=== PATIENT | female | born 1955 | race Caucasian/White ===

== ENCOUNTER 2019-09-16 10:40 | Day surgery (SDC) | payer MEDICARE, BC ==
[2019-09-16] VITALS (8 sets, daily range): BP systolic 91–161; BP diastolic 46–94
[~2019-09-16] VITALS: Ht 170.2 cm; Wt 133.8 kg
[2019-09-16 11:34] LABS: BASOPHILS # (AUTO) 0.1 X10'3 (0-0.2); BASOPHILS % (AUTO) 1.1 % (0-1); EOSINOPHILS # (AUTO) 0.2 X10'3 (0-0.9); EOSINOPHILS % (AUTO) 2.1 % (0-6); HEMATOCRIT 40.5 % (35.0-45.0); HEMOGLOBIN 13.5 g/dl (12.0-16.0); LYMPHOCYTES # (AUTO) 2.1 X10'3 (1.1-4.8); LYMPHOCYTES % (AUTO) 23.8 % (21-51); MEAN CORPUSCULAR HEMOGLOBIN 31.2 PG (27.0-31.0); MEAN CORPUSCULAR HGB CONC 33.3 g/dL (33.0-36.5); MEAN CORPUSCULAR VOLUME 93.5 FL (78-98); MEAN PLATELET VOLUME 9.4 FL (7.4-10.4); MONOCYTES # (AUTO) 0.8 X10'3 (0-0.9); MONOCYTES % (AUTO) 9.2 % (2-12); NEUTROPHILS # (AUTO) 5.7 X10'3 (1.8-7.7); NEUTROPHILS % (AUTO) 63.8 % (42-75); PLATELET COUNT 218 X10'3 (140-440); RED BLOOD COUNT 4.33 X10'6 (4.20-5.60); RED CELL DISTRIBUTION WIDTH 14.2 % (11.5-14.5); WHITE BLOOD COUNT 8.9 X10'3 (4.5-11.0)
[2019-09-16 11:41] LABS: ALBUMIN 3.3 G/DL (3.4-5.0); ANION GAP 8 (8-16); BLOOD UREA NITROGEN 27 MG/DL (7-18); BUN/CREATININE RATIO 24.8 (6.6-38.0); CALCIUM 8.7 MG/DL (8.5-10.1); CHLORIDE 103 MMOL/L (99-107); CREATININE 1.09 MG/DL (0.40-0.90); GLUCOSE 109 MG/DL (70-104); MAGNESIUM 2.2 MG/DL (1.5-2.4); SODIUM 138 MMOL/L (135-145); eGFR 51 ML/MIN
[2019-09-16] MEDS ORDERED: MONT10TA21 PO (11:58)
[2019-09-16] MEDS ORDERED: GABA300C PO (11:58)
[2019-09-16] MEDS ORDERED: FAMO40TA58 PO (11:58)
[2019-09-16] MEDS ORDERED: BUME1TAB34 PO ×2 (11:58)
[2019-09-16] MEDS ORDERED: ROSU40TA PO (11:58)
[2019-09-16] MEDS ORDERED: SYN0.112T PO (11:58)
[2019-09-16] MEDS ORDERED: ASPI-10 PO (11:58)
[2019-09-16] MEDS ORDERED: METF-900 PO (11:58)
[2019-09-16] MEDS ORDERED: FLUT1BLS3 INH (11:58)
[2019-09-16] MEDS ORDERED: LISI10TA4 PO (11:58)
[2019-09-16] MEDS ORDERED: LIRA0.6P2 SUBCUT (11:58)
[2019-09-16] MEDS ORDERED: MAGN400T28 PO (11:58)
[2019-09-16] MEDS ORDERED: CETI-90 PO (11:58)
[2019-09-16] MEDS ORDERED: CLOP75TA15 PO (11:58)
[2019-09-16] MEDS ORDERED: INSU100I29 SQ (11:58)
[2019-09-16] MEDS ORDERED: POTA10TA19 PO (11:58)
[2019-09-16] MEDS ORDERED: MULT-1085 PO (11:58)
[2019-09-16] MEDS ORDERED: midazolam 2 mg/2 ml injection ONE ×7 (12:32→15:17)
[2019-09-16] MEDS ORDERED: ceFAZolin 1000mg inj ONE (12:32)
[2019-09-16] MEDS ORDERED: proCHLORperazine 10 MG/2 ml inj ONE (12:32)
[2019-09-16] MEDS ORDERED: LIDOcaine 1% W/epiNEPHrine 1:100,000 20ml vial ONE (12:32)
[2019-09-16] MEDS ORDERED: fentaNYL/PF 50MCG/1 ML 2ML syringe ONE ×3 (12:32→15:14)
[2019-09-16] MEDS ORDERED: vancomycin 1,000mg inj ONE (12:32)
[2019-09-16] MEDS ORDERED: hydrocortisone sod succ/PF 100mg/2ml inj. ONE (13:01)
[2019-09-16] MEDS ORDERED: diphenhydrAMINE 50 mg/ml inj ONE (13:01)
[2019-09-16] MEDS ORDERED: iohexol 350MG/ML 100ml bottle IV ONE ×2 (13:28→13:52)
[2019-09-16] MEDS ORDERED: furosemide 20 MG/2 ML vial IV ONE (16:00)
[2019-09-16] MEDS ORDERED: normal saline 1000ml 1,000 ML IV SCH (16:00)
== END 2019-09-16 18:06 | disposition home or self-care (01) ==
LOC: SSTAY O 10:40
PROVIDERS: ATTEND Internal Medicine Cardiovascular Disease
DX: I25.5 Ischemic cardiomyopathy (principal); I25.10 Atherosclerotic heart disease of native coronary artery without angina pectoris; E28.2 Polycystic ovarian syndrome; E78.00 Pure hypercholesterolemia, unspecified; I25.2 Old myocardial infarction; E10.9 Type 1 diabetes mellitus without complications; E03.9 Hypothyroidism, unspecified; Z86.19 Personal history of other infectious and parasitic diseases; L40.50 Arthropathic psoriasis, unspecified; Z87.891 Personal history of nicotine dependence; Z88.8 Allergy status to other drugs, medicaments and biological substances; Z79.899 Other long term (current) drug therapy; Z79.01 Long term (current) use of anticoagulants; Z79.82 Long term (current) use of aspirin; Z79.4 Long term (current) use of insulin; Z82.49 Family history of ischemic heart disease and other diseases of the circulatory system; I49.01 Ventricular fibrillation
CPT/HCPCS: 33225; 33249; 36415; 71045; 80048; 83735; 85025; 85610; 93005; 99152; 99153; C1769; C1882; C1887; C1894; C1895; C1900; J0690; J0780; J1200; J1720; J2250; J3010; J3370; Q9967; A4565; A6449